=== PATIENT | female | born 1945 | race African-American/Black ===

== ENCOUNTER 2024-04-26 05:10 | Inpatient (IN) | payer MEDICARE, OTHER ==
[~2024-04-26] VITALS: Ht 167.6 cm; Wt 99.3 kg
[~2024-04-26 05:10] MED LIST: AMIO100T4 PO; BACL-141 PO; CETI-341 PO; DABI150C PO; HYDR50TA40 MT; ISOS60TA76 MT; LETR2.5T7 PO; LEVO200T8 MT; LOSA50TA41 MT; OMEP40CA20 PO
[2024-04-26] MEDS ORDERED: HYDR100T31 PO (15:19)
[2024-04-26 17:20] VITALS: BP 139/74; PULSE 64; RESP 16; TEMP 36.55848; O2SAT 99
[2024-04-26] MEDS ORDERED: ONDANSETRON HCL 4MG/2ML INJ IV PRN (18:30)
[2024-04-26] MEDS ORDERED: GUAIFENESIN 200MG 200 MG TABLET PO PRN (18:45)
[2024-04-26 19:14] VITALS: BP 160/79; PULSE 59; RESP 59; TEMP 36.418
[2024-04-26 20:00] VITALS: BP 160/79; PULSE 59; RESP 18; TEMP 36.61404; O2SAT 98
[2024-04-26] MEDS: DOCUSATE SODIUM 100MG CAPSULE PO SCH (21:46)
[2024-04-26] MEDS: HYDRALAZINE HCL 100MG TABLET PO SCH (21:47)
[2024-04-27] MEDS: ACETAMINOPHEN 325MG TABLET PO PRN (01:16)
[2024-04-27 05:45] LABS: BASOPHILS % 0.9 % (0.0-2.0); EOSINOPHILS % 6.2 % (0.0-5.0); HEMATOCRIT. 31.6 % (36.0-48.0); HEMOGLOBIN. 10.4 g/dL (12.0-16.0); LYMPHOCYTES % 33.2 % (20.0-50.0); MEAN CORPUSCULAR HEMOGLOBIN 29.2 pg (28.0-32.0); MEAN CORPUSCULAR VOLUME 88.5 fL (81.0-99.0); MEAN PLATELET VOLUME 7.3 fl (7.4-10.4); MONOCYTES % 9.7 % (2.0-8.0); PLATELET 283 x1000/uL (130-400); RED BLOOD CELL COUNT 3.57 mill/uL (4.2-5.4); RED CELL DISTRIBUTION WIDTH 19.8 % (11.6-14.6); WHITE BLOOD COUNT 5.6 x1000/uL (4.5-11.0)
[2024-04-27] MEDS: ENOXAPARIN 30MG/0.3ML SYR SUBCUT SCH (05:55)
[2024-04-27 06:04] LABS: CHLORIDE 111 mEq/L (98-107); POTASSIUM 3.8 mEq/L (3.5-5.1); SODIUM 143 mEq/L (136-145)
[2024-04-27 06:08] LABS: CARBON DIOXIDE 25 mEq/L (21-32)
[2024-04-27 06:09] LABS: CALCIUM 9.2 mg/dL (8.7-10.4)
[2024-04-27 06:12] LABS: ALANINE AMINOTRANSFERASE 13 IU/L (10-49)
[2024-04-27 06:13] LABS: GLUCOSE 84 mg/dL (70-105)
[2024-04-27 06:14] LABS: ALBUMIN 3.7 g/dL (3.2-4.8); ASPARTATE AMINOTRANSFERASE 14 IU/L (<34); UREA NITROGEN BLOOD 17 mg/dL (9-23)
[2024-04-27 06:16] LABS: BILIRUBIN TOTAL 0.3 mg/dL (0.1-1.0); PREALBUMIN 24.2 mg/dl (10.0-40.0)
[2024-04-27] MEDS: LEVOTHYROXINE SODIUM 200MCG TABLET PO SCH (06:29)
[2024-04-27 08:00] VITALS: BP 149/82; PULSE 61; RESP 18; TEMP 36.22512; O2SAT 99
[2024-04-27] MEDS: CYANOCOBALAMIN 1000MCG/ML VIAL IM SCH (09:22)
[2024-04-27] MEDS: CETIRIZINE 10MG TABLET PO SCH (09:23)
[2024-04-27] MEDS: AMIODARONE 200MG TABLET PO SCH (09:23)
[2024-04-27] MEDS: LETROZOLE 2.5MG TABLET PO SCH (09:23)
[2024-04-27] MEDS: ISOSORBIDE MONONITRATE 60MG TABLET SR 24HR PO SCH (18:39)
[2024-04-27] MEDS: LOSARTAN 50 MG TABLET PO SCH (18:40)
[2024-04-27] MEDS ORDERED: ALBUTEROL (0.083%) 2.5MG/3ML NEB HHN PRN (18:45)
[2024-04-27 20:00] VITALS: BP 153/99; PULSE 72; RESP 18; TEMP 36.22512; O2SAT 99
[2024-04-28 08:00] VITALS: BP 142/67; PULSE 66; RESP 18; TEMP 36.22512; O2SAT 100
[2024-04-28 08:09] LABS: BASOPHILS % 0.9 % (0.0-2.0); HEMATOCRIT. 32.3 % (36.0-48.0); HEMOGLOBIN. 10.5 g/dL (12.0-16.0); LYMPHOCYTES % 31.5 % (20.0-50.0); MEAN CORPUSCULAR HEMOGLOBIN 28.6 pg (28.0-32.0); MEAN CORPUSCULAR HGB CONC 32.5 g/dL (31.0-37.0); MEAN PLATELET VOLUME 7.7 fl (7.4-10.4); MONOCYTES % 9.6 % (2.0-8.0); PLATELET 294 x1000/uL (130-400); RED BLOOD CELL COUNT 3.66 mill/uL (4.2-5.4); RED CELL DISTRIBUTION WIDTH 20.3 % (11.6-14.6); WHITE BLOOD COUNT 5.7 x1000/uL (4.5-11.0)
[2024-04-28 08:19] LABS: CHLORIDE 111 mEq/L (98-107); SODIUM 144 mEq/L (136-145)
[2024-04-28 08:20] LABS: CALCIUM 9.3 mg/dL (8.7-10.4); CARBON DIOXIDE 27 mEq/L (21-32)
[2024-04-28 08:24] LABS: IRON 49 ug/dL (50-170)
[2024-04-28 08:25] LABS: CREATININE 1.1 mg/dL (0.6-1.0); GLUCOSE 86 mg/dL (70-105); UREA NITROGEN BLOOD 20 mg/dL (9-23)
[2024-04-28 08:27] LABS: CREATINE KINASE 54 IU/L (34-145); TOTAL IRON BINDING CAPACITY 268 ug/dl (250-425)
[2024-04-28 08:33] LABS: T4 FREE 1.13 ng/dL (0.89-1.76); THYROID STIMULATING HORMONE 36.66 uIU/mL (0.55-4.78)
[2024-04-28 08:35] LABS: FOLIC ACID (FOLATE) SERUM 13.9 ng/mL (>5.38)
[2024-04-28 09:46] LABS: CLARITY URINE CLOUDY (CLEAR); COLOR URINE YELLOW (YELLOW); GLUCOSE URINE NEGATIVE (NEGATIVE); KETONES URINE NEGATIVE (NEGATIVE); LEUKOCYTE ESTERASE URINE 3+ (NEGATIVE); NITRITE URINE POSITIVE (NEGATIVE); OCCULT BLOOD URINE NEGATIVE (NEGATIVE); PH URINE 6.5 (4.5-8.0); PROTEIN URINE NEGATIVE (NEGATIVE); SPECIFIC GRAVITY URINE 1.015 (1.005-1.030)
[2024-04-28 10:13] LABS: SQUAMOUS EPITHELIAL CELL URINE RARE /lpf (RARE/1+)
[2024-04-28 10:14] LABS: WBC URINE 25-50 /hpf (0-2)
[2024-04-28 10:15] LABS: BACTERIA URINE 4+; RBC URINE 0-2 /hpf (0-2)
[2024-04-28] MEDS: FERROUS SULFATE 325MG TABLET PO SCH (17:23)
[2024-04-28 20:00] VITALS: BP 148/75; PULSE 68; RESP 19; TEMP 36.61404; O2SAT 98
[2024-04-29 08:00] VITALS: BP 162/80; PULSE 65; RESP 20; TEMP 36.44736; O2SAT 100
[2024-04-29] MEDS: ASCORBIC ACID 500 MG TABLET PO SCH (08:09)
[2024-04-29] MEDS: CYANOCOBALAMIN 1000MCG TABLET PO SCH (08:10)
[2024-04-29] MEDS: CHOLECALCIFEROL (D3) 1000 UNIT TABLET PO SCH (12:54)
[2024-04-29] MEDS: IBUPROFEN 600MG TABLET PO PRN (12:55)
[2024-04-29] MEDS: ERGOCALCIFEROL 50000UNITS CAPSULE PO SCH (14:48)
[2024-04-29] MEDS: MAGNESIUM/ALUMINUM HYDROXIDE/SIMETHICONE 30ML UDC PO PRN (14:48)
[2024-04-29] MEDS: POLYETHYLENE GLYCOL 3350 (17GM) 1 DOSE PACK PO SCH (15:00)
[2024-04-29] MEDS: MAGNESIUM HYDROXIDE 400MG/5ML 30ML UDC PO SCH (15:00)
[2024-04-29 16:02] VITALS: PULSE 79; RESP 18; O2SAT 98
[2024-04-29] MEDS: IPRATROPIUM BROMIDE (0.02%) 0.5MG/2.5ML NEB HHN SCH (16:02)
[2024-04-29 19:40] VITALS: PULSE 77; RESP 18; O2SAT 99
[2024-04-29 20:00] VITALS: BP 141/75; PULSE 68; RESP 19; TEMP 36.22512; O2SAT 98
[2024-04-30] MEDS: LEVOTHYROXINE SODIUM 200MCG TABLET PO SCH (06:55)
[2024-04-30] MEDS: LEVOTHYROXINE SODIUM 25MCG TABLET PO SCH (06:59)
[2024-04-30] MEDS ORDERED: LEVOTHYROXINE SODIUM 200MCG TABLET PO SCH (07:00)
[2024-04-30 07:34] VITALS: PULSE 63; RESP 20; O2SAT 98
[2024-04-30 08:00] VITALS: BP 139/84; PULSE 73; RESP 18; TEMP 36.72516; O2SAT 99
[2024-04-30 10:45] VITALS: PULSE 100; PULSE 73; RESP 18; RESP 22; TEMP 98
[2024-04-30 12:03] LABS: BASOPHILS % 0.8 % (0.0-2.0); EOSINOPHILS % 4.2 % (0.0-5.0); HEMOGLOBIN. 10.5 g/dL (12.0-16.0); LYMPHOCYTES % 24.1 % (20.0-50.0); MEAN CORPUSCULAR HEMOGLOBIN 28.5 pg (28.0-32.0); MEAN CORPUSCULAR HGB CONC 31.9 g/dL (31.0-37.0); MEAN CORPUSCULAR VOLUME 89.4 fL (81.0-99.0); MEAN PLATELET VOLUME 8.1 fl (7.4-10.4); MONOCYTES % 10.2 % (2.0-8.0); NEUTROPHILS % 60.7 % (40.0-76.0); PLATELET 292 x1000/uL (130-400); RED BLOOD CELL COUNT 3.68 mill/uL (4.2-5.4); RED CELL DISTRIBUTION WIDTH 19.6 % (11.6-14.6); WHITE BLOOD COUNT 5.5 x1000/uL (4.5-11.0)
[2024-04-30 12:11] LABS: CALCIUM 9.2 mg/dL (8.7-10.4)
[2024-04-30 12:15] LABS: CREATININE 1.1 mg/dL (0.6-1.0)
[2024-04-30 15:07] VITALS: PULSE 86; RESP 18; O2SAT 98
[2024-04-30] MEDS: BISACODYL 10MG SUPP PR NR (16:14)
[2024-04-30] MEDS: LACTULOSE 20G/30ML UDC PO SCH (16:14)
[2024-04-30 20:00] VITALS: BP 166/84; PULSE 77; RESP 18; TEMP 36.89184; O2SAT 98
[2024-04-30 21:08] VITALS: PULSE 89; RESP 20; O2SAT 96
[2024-05-01] MEDS: CLONIDINE 0.1MG TABLET PO PRN (06:04)
[2024-05-01 08:00] VITALS: BP 143/77; PULSE 73; RESP 18; TEMP 36.22512; O2SAT 98
[2024-05-01 12:43] VITALS: PULSE 84; RESP 18
[2024-05-01 20:00] VITALS: BP 134/72; PULSE 66; RESP 18; TEMP 36.22512; O2SAT 96
[2024-05-01 20:05] VITALS: PULSE 78; RESP 20; O2SAT 97
[2024-05-02 06:52] VITALS: PULSE 76; RESP 18; O2SAT 96
[2024-05-02 08:00] VITALS: BP 143/77; PULSE 64; RESP 18; TEMP 36.16956; O2SAT 98
[2024-05-02 17:31] VITALS: PULSE 72; RESP 20
[2024-05-02 20:00] VITALS: BP 134/70; PULSE 66; RESP 18; TEMP 36.61404; O2SAT 97
[2024-05-02 20:14] VITALS: PULSE 76; RESP 20; O2SAT 97
[2024-05-03 06:02] VITALS: PULSE 78; RESP 22; O2SAT 96
[2024-05-03 08:00] VITALS: BP 167/78; PULSE 64; RESP 64; TEMP 36.16956; O2SAT 100
[2024-05-03] MEDS: ZINC SULFATE 220 MG ( 50 ) CAPSULE PO SCH (08:39)
[2024-05-03] MEDS ORDERED: ASCORBIC ACID 500 MG TABLET PO SCH (09:00)
[2024-05-03 20:00] VITALS: BP 121/73; PULSE 66; RESP 66; TEMP 36.33624; O2SAT 66
[2024-05-03 20:12] VITALS: PULSE 69; RESP 16; O2SAT 97
[2024-05-04 07:34] VITALS: PULSE 70; RESP 18
[2024-05-04 08:00] VITALS: BP 180/84; PULSE 64; RESP 19; TEMP 36.16956; O2SAT 100
[2024-05-04 14:41] VITALS: PULSE 64; RESP 18
[2024-05-04] MEDS: BISACODYL 10MG SUPP PR NR (15:23)
[2024-05-04 20:00] VITALS: BP 151/78; PULSE 67; RESP 18; TEMP 36.33624; O2SAT 99
[2024-05-04 20:17] VITALS: PULSE 66; RESP 16; O2SAT 99
[2024-05-05 07:38] LABS: CHLORIDE 113 mEq/L (98-107); POTASSIUM 3.9 mEq/L (3.5-5.1); SODIUM 144 mEq/L (136-145)
[2024-05-05 07:39] LABS: CALCIUM 9.1 mg/dL (8.7-10.4); CARBON DIOXIDE 25 mEq/L (21-32)
[2024-05-05 07:42] VITALS: PULSE 72; RESP 16
[2024-05-05 07:44] LABS: CREATININE 0.9 mg/dL (0.6-1.0); GLUCOSE 77 mg/dL (70-105); UREA NITROGEN BLOOD 15 mg/dL (9-23)
[2024-05-05 08:00] VITALS: BP 167/81; PULSE 66; RESP 18; TEMP 36.6696; O2SAT 100
[2024-05-05 08:23] LABS: BASOPHILS % 0.3 % (0.0-2.0); EOSINOPHILS % 3.9 % (0.0-5.0); HEMATOCRIT. 32.7 % (36.0-48.0); HEMOGLOBIN. 10.5 g/dL (12.0-16.0); LYMPHOCYTES % 26.7 % (20.0-50.0); MEAN CORPUSCULAR HEMOGLOBIN 28.9 pg (28.0-32.0); MEAN CORPUSCULAR HGB CONC 32.1 g/dL (31.0-37.0); MEAN CORPUSCULAR VOLUME 90.1 fL (81.0-99.0); MEAN PLATELET VOLUME 8.6 fl (7.4-10.4); MONOCYTES % 9.1 % (2.0-8.0); PLATELET 269 x1000/uL (130-400); RED BLOOD CELL COUNT 3.63 mill/uL (4.2-5.4); RED CELL DISTRIBUTION WIDTH 19.8 % (11.6-14.6); WHITE BLOOD COUNT 6.9 x1000/uL (4.5-11.0)
[2024-05-05 10:09] LABS: ANTI-PARIETAL CELL AB 19.5 Units (0.0-20.0)
[2024-05-05 20:00] VITALS: BP 149/83; PULSE 72; RESP 18; TEMP 36.22512; O2SAT 100
[2024-05-05 21:10] VITALS: PULSE 72; RESP 18
[2024-05-05] MEDS: MELATONIN 3MG TABLET PO SCH (23:39)
[2024-05-06 08:00] VITALS: BP 165/82; PULSE 95; RESP 18; TEMP 36.28068; O2SAT 95
[2024-05-06 20:00] VITALS: BP 115/76; PULSE 97; RESP 18; TEMP 36.22512; O2SAT 97
[2024-05-07 00:41] VITALS: PULSE 78; RESP 18; O2SAT 100
[2024-05-07 07:36] VITALS: PULSE 60; RESP 12; O2SAT 94
[2024-05-07] MEDS: IPRATROPIUM BROMIDE (0.02%) 0.5MG/2.5ML NEB HHN SCH (07:36)
[2024-05-07 08:00] VITALS: BP 146/74; PULSE 64; RESP 19; TEMP 37.05852; O2SAT 100
[2024-05-07 15:08] VITALS: PULSE 77; RESP 16; O2SAT 97
[2024-05-07 20:00] VITALS: BP 128/71; PULSE 75; RESP 19; TEMP 36.22512; O2SAT 100
[2024-05-07 20:12] VITALS: PULSE 66; RESP 16; O2SAT 98
[2024-05-07] MEDS: ENOXAPARIN 30MG/0.3ML SYR SUBCUT SCH (21:20)
[2024-05-08 06:26] VITALS: BP 154/77; PULSE 60
[2024-05-08 07:35] VITALS: PULSE 66; RESP 20; O2SAT 98
[2024-05-08 08:00] VITALS: BP 173/80; PULSE 58; RESP 20; TEMP 36.28068; O2SAT 100
[2024-05-08] MEDS ORDERED: CYANOCOBALAMIN 1000MCG/ML VIAL IM SCH (09:00)
[2024-05-08 14:33] VITALS: PULSE 67; RESP 20; O2SAT 97
[2024-05-08 20:00] VITALS: BP 138/71; PULSE 69; RESP 19; TEMP 36.44736; O2SAT 99
[2024-05-08 20:45] VITALS: PULSE 78; RESP 18; O2SAT 98
[2024-05-09] MEDS: POLYVINYL ALCOHOL OPHTH DROPS 15ML BOTHEYE SCH (06:42)
[2024-05-09 08:00] VITALS: BP 159/74; PULSE 66; RESP 18; TEMP 36.50292; O2SAT 100
[2024-05-09 09:35] VITALS: PULSE 74; RESP 16; O2SAT 99
[2024-05-09] MEDS: LACTULOSE 20G/30ML UDC PO SCH (12:20)
[2024-05-09 14:00] VITALS: PULSE 76; RESP 16; O2SAT 99
[2024-05-09 20:00] VITALS: BP 158/84; PULSE 84; RESP 18; TEMP 36.44736; O2SAT 99
[2024-05-09 20:45] VITALS: PULSE 72; RESP 18; O2SAT 98
[2024-05-10 07:56] VITALS: PULSE 70; RESP 16; O2SAT 97
[2024-05-10 08:00] VITALS: BP 171/81; PULSE 80; RESP 18; TEMP 36.50292; O2SAT 99
[2024-05-10 15:30] VITALS: PULSE 72; RESP 16; O2SAT 98
[2024-05-10] MEDS: BISACODYL 10MG SUPP PR NR (18:02)
[2024-05-10 20:00] VITALS: BP 158/71; PULSE 69; RESP 18; TEMP 36.44736; O2SAT 100
[2024-05-10 20:16] VITALS: PULSE 68; RESP 16; O2SAT 97
[2024-05-11 06:35] LABS: CARBON DIOXIDE 26 mEq/L (21-32); CHLORIDE 111 mEq/L (98-107); SODIUM 143 mEq/L (136-145)
[2024-05-11 06:41] LABS: GLUCOSE 85 mg/dL (70-105)
[2024-05-11 06:42] LABS: UREA NITROGEN BLOOD 16 mg/dL (9-23)
[2024-05-11 06:44] LABS: THYROID STIMULATING HORMONE 5.54 uIU/mL (0.55-4.78)
[2024-05-11 08:00] VITALS: BP 157/73; PULSE 70; RESP 20; TEMP 36.72516; O2SAT 99
[2024-05-11] MEDS: LOSARTAN 100 MG TABLET PO SCH (08:39)
[2024-05-11 13:30] VITALS: PULSE 81; RESP 20
[2024-05-11] MEDS: NA PHOS,M-B/NA PHOS,DI-BA ENEMA 118ML PR NR (15:15)
[2024-05-11 20:00] VITALS: BP 142/81; PULSE 73; RESP 19; TEMP 37.00296; O2SAT 100
[2024-05-11 20:50] VITALS: PULSE 68; RESP 18; O2SAT 98
[2024-05-12 08:00] VITALS: BP 164/80; PULSE 69; RESP 20; TEMP 36.3918; O2SAT 100
[2024-05-12] MEDS: LACTULOSE 20G/30ML UDC PO SCH (16:03)
[2024-05-12] MEDS: SORBITOL 70% SOLN 30ML PO SCH (17:10)
[2024-05-12 20:00] VITALS: BP 146/73; PULSE 72; RESP 20; TEMP 36.55848; O2SAT 98
[2024-05-13 08:00] VITALS: BP 159/81; PULSE 60; RESP 18; TEMP 36.16956; O2SAT 97
[2024-05-13] MEDS ORDERED: SORBITOL 70% SOLN 30ML PO PRN (13:15)
[2024-05-13 20:00] VITALS: BP 155/77; PULSE 66; RESP 18; TEMP 36.22512; O2SAT 98
[2024-05-13] MEDS: SENNOSIDES/DOCUSATE SOD 8.6/50MG TABLET PO SCH (20:45)
[2024-05-14 07:14] LABS: CHLORIDE 111 mEq/L (98-107); POTASSIUM 3.9 mEq/L (3.5-5.1); SODIUM 144 mEq/L (136-145)
[2024-05-14 07:15] LABS: CARBON DIOXIDE 26 mEq/L (21-32)
[2024-05-14 07:16] LABS: CALCIUM 9.2 mg/dL (8.7-10.4)
[2024-05-14 07:20] LABS: GLUCOSE 86 mg/dL (70-105)
[2024-05-14 07:21] LABS: UREA NITROGEN BLOOD 16 mg/dL (9-23)
[2024-05-14 07:22] LABS: ALANINE AMINOTRANSFERASE 9 IU/L (10-49); ALBUMIN 3.6 g/dL (3.2-4.8); ASPARTATE AMINOTRANSFERASE 9 IU/L (<34)
[2024-05-14 07:23] LABS: BILIRUBIN TOTAL 0.3 mg/dL (0.1-1.0)
[2024-05-14 07:27] LABS: BASOPHILS % 0.9 % (0.0-2.0); EOSINOPHILS % 5.3 % (0.0-5.0); HEMATOCRIT. 31.6 % (36.0-48.0); HEMOGLOBIN. 10.1 g/dL (12.0-16.0); LYMPHOCYTES % 35.4 % (20.0-50.0); MEAN CORPUSCULAR VOLUME 90.4 fL (81.0-99.0); MEAN PLATELET VOLUME 8.2 fl (7.4-10.4); MONOCYTES % 10.6 % (2.0-8.0); NEUTROPHILS % 47.8 % (40.0-76.0); PLATELET 246 x1000/uL (130-400); RED BLOOD CELL COUNT 3.49 mill/uL (4.2-5.4); RED CELL DISTRIBUTION WIDTH 19.6 % (11.6-14.6); WHITE BLOOD COUNT 5.4 x1000/uL (4.5-11.0)
[2024-05-14 08:00] VITALS: BP 173/80; PULSE 64; RESP 20; TEMP 36.22512; O2SAT 99
[2024-05-14] MEDS: DOCUSATE SODIUM 250MG CAPSULE PO SCH (09:17)
[2024-05-14 09:22] VITALS: BP 155/79; PULSE 68; RESP 20; O2SAT 98
[2024-05-14] MEDS ORDERED: OMEP40CA20 PO (15:05)
[2024-05-14] MEDS ORDERED: LEVO25TA7 PO (15:05)
[2024-05-14] MEDS ORDERED: HYDR100T31 PO (15:05)
[2024-05-14] MEDS ORDERED: SYN200 PO (15:05)
[2024-05-14] MEDS ORDERED: DABI150C PO (15:05)
[2024-05-14] MEDS ORDERED: POLY119P2 PO (15:05)
[2024-05-14] MEDS ORDERED: LOSA100T33 PO (15:05)
[2024-05-14] MEDS ORDERED: ISOS60TA76 MT (15:05)
[2024-05-14] MEDS ORDERED: MELA3TAB40 PO (15:05)
[2024-05-14] MEDS ORDERED: CETI-341 PO (15:05)
[2024-05-14] MEDS ORDERED: POLY15DR40 EACHEYE (15:05)
[2024-05-14] MEDS ORDERED: AMIO100T4 PO (15:05)
[2024-05-14] MEDS ORDERED: LETR2.5T7 PO (15:05)
[2024-05-14 16:05] VITALS: BP 151/78; PULSE 72; TEMP 97.1; O2SAT 97
[2024-05-14 20:00] VITALS: BP 164/81; PULSE 67; RESP 18; TEMP 36.44736; O2SAT 98
[2024-05-14 20:05] VITALS: PULSE 66; RESP 14; O2SAT 99
[2024-05-14] MEDS: IPRATROPIUM BROMIDE (0.02%) 0.5MG/2.5ML NEB HHN SCH (20:05)
[2024-05-14] MEDS ORDERED: ERGO1250 PO (23:54)
[2024-05-15 08:00] VITALS: BP 144/71; PULSE 68; RESP 18; TEMP 36.22512; O2SAT 99
[2024-05-15] MEDS: CLONIDINE 0.1MG TABLET PO SCH (09:00)
[2024-05-15 09:30] VITALS: BP 144/72; PULSE 68; TEMP 97.2; O2SAT 99
[2024-05-15 09:39] VITALS: PULSE 68
[2024-05-17 13:06] LABS: METANEPHRINE PLASMA <25.0 pg/mL (0.0-88.0); NORMETANEPHRINE PLASMA 83.2 pg/mL (0.0-285.2)
[2024-05-19 13:48] LABS: METANEPHRINE PLASMA <25.0; NORMETANEPHRINE PLASMA 83.2
== END 2024-05-15 10:45 | disposition home health service (06) | DRG 552 ==
PROVIDERS: ADMIT Physical Medicine & Rehabilitation Spinal Cord Injury Medicine; ATTEND Preventive Medicine Clinical Informatics
DX: M48.061 Spinal stenosis, lumbar region without neurogenic claudication (principal); G82.20 Paraplegia, unspecified; M62.82 Rhabdomyolysis; N39.0 Urinary tract infection, site not specified; I16.9 Hypertensive crisis, unspecified; D68.9 Coagulation defect, unspecified; M48.56XA Collapsed vertebra, not elsewhere classified, lumbar region, initial encounter for fracture; M54.16 Radiculopathy, lumbar region; G89.29 Other chronic pain; M85.80 Other specified disorders of bone density and structure, unspecified site; M17.12 Unilateral primary osteoarthritis, left knee; R94.6 Abnormal results of thyroid function studies; E66.9 Obesity, unspecified; Z68.37 Body mass index [BMI] 37.0-37.9, adult; I48.0 Paroxysmal atrial fibrillation; E53.8 Deficiency of other specified B group vitamins; R53.81 Other malaise; D64.9 Anemia, unspecified; D72.10 Eosinophilia, unspecified; F17.210 Nicotine dependence, cigarettes, uncomplicated; E55.9 Vitamin D deficiency, unspecified; B96.89 Other specified bacterial agents as the cause of diseases classified elsewhere; Z96.651 Presence of right artificial knee joint; F39 Unspecified mood [affective] disorder; B35.1 Tinea unguium; K59.00 Constipation, unspecified; M54.59 Other low back pain; L98.419 Non-pressure chronic ulcer of buttock with unspecified severity; G62.89 Other specified polyneuropathies; I11.9 Hypertensive heart disease without heart failure; E89.0 Postprocedural hypothyroidism; M81.0 Age-related osteoporosis without current pathological fracture; E87.6 Hypokalemia; J44.9 Chronic obstructive pulmonary disease, unspecified; R32 Unspecified urinary incontinence; Z74.01 Bed confinement status; Z82.49 Family history of ischemic heart disease and other diseases of the circulatory system; Z88.2 Allergy status to sulfonamides; Z91.81 History of falling; Z80.42 Family history of malignant neoplasm of prostate; Z82.3 Family history of stroke; Z85.850 Personal history of malignant neoplasm of thyroid; Z90.710 Acquired absence of both cervix and uterus
CPT/HCPCS: 36415; 74018; 80048; 80053; 81003; 82088; 82306; 82550; 82728; 82746; 83036; 83540; 83550; 83835; 84134; 84244; 84439; 84443; 84481; 85025; 86340; 87077; 87186; 94640; 97110; 97112; 97116; 97150; 97162; 97166; 97530; 97535; 97542; A4565; A6261; J1650; J2405; J3420